=== PATIENT | male | born 1970 | race Caucasian/White ===

== ENCOUNTER 2019-04-15 19:29 | Emergency (ER) | payer BC ==
--- NOTE | 2019-04-15 20:06 | EDM.PDOC ---
ED HPI GENERAL MEDICAL PROBLEM - General Chief Complaint: General Stated Complaint: POSSIBLE BLOOD CLOT Time Seen by Provider: 04/15/19 19:55 Source of Information: Reports: Patient, Family, RN History Limitations: Reports: No Limitations - History of Present Illness INITIAL COMMENTS - FREE TEXT/NARRATIVE: 48 yr male presents with tenderness, swelling to left lower leg. This has been going on for a few days. He has been mowing the lawn lately and there are two, scabbed areas to the ricardo. Some tenderness to the calf with this. Left Lower Leg Pain Score (Numeric/FACES): 4 - Related Data Allergies Allergy/AdvReac Type Severity Reaction Status Date / Time Penicillins Allergy Hives Verified 04/15/19 19:48 Home Meds: Home Meds amLODIPine Besylate/Benazepril [Amlodipine-Benazepril 5-10 MG] 1 each PO DAILY 04/15/19 [History] atorvaSTATin [Lipitor] 10 mg PO BEDTIME 04/15/19 [History] Social & Family History - Tobacco Use Smoking Status *Q: Unknown Ever Smoked ED ROS GENERAL - Review of Systems Review Of Systems: See Below Constitutional: Reports: No Symptoms HEENT: Reports: No Symptoms Respiratory: Reports: No Symptoms Cardiovascular: Reports: Edema GI/Abdominal: Reports: No Symptoms Musculoskeletal: Reports: Other (pain to ricardo with ambulation, increase in pain with extension of left ankle/foot) Skin: Reports: Erythema ED EXAM, GENERAL - Physical Exam Exam: See Below Exam Limited By: No Limitations General Appearance: Alert, No Apparent Distress Ears: Hearing Grossly Normal Nose: Normal Inspection, Normal Mucosa Throat/Mouth: Normal Voice, No Airway Compromise, Other (Mild erythema to posterior pharynx) Head: Atraumatic, Normocephalic Neck: Supple, Non-Tender, Full Range of Motion Respiratory/Chest: No Respiratory Distress, Lungs Clear, Normal Breath Sounds Cardiovascular: Regular Rate, Rhythm, Other (swelling noted to left lower leg. Right ankle 9 3/4 and left ankle is 11/38. Right calf is 9 3/4 and left calf is 11 3/8.) Back Exam: Normal Inspection, Full Range of Motion Extremities: Normal Range of Motion, Redness (left ricardo with superficial swelling and redness noted, no pitting edema.) Neurological: Alert, Oriented, Normal Cognition Course - Vital Signs Last Recorded V/S: Last Vital Signs Temp 98.3 F 04/15/19 19:38 Pulse 89 04/15/19 19:38 Resp 16 04/15/19 19:38 BP 145/87 H 04/15/19 19:38 Pulse Ox 99 04/15/19 19:38 - Orders/Labs/Meds Labs: Laboratory Tests 04/15/19 04/15/19 Range/Units 20:00 20:00 WBC 12.5 H (4.0-11.0) K/uL RBC 4.93 (4.50-6.50) M/uL Hgb 15.4 (13.0-18.0) g/dL Hct 45.7 (40.0-54.0) % MCV 93 (76-96) fL MCH 31.2 (27.0-32.0) pg MCHC 33.7 (31.0-35.0) g/dL RDW 13.1 (11.0-16.0) % Plt Count 262 (150-400) K/uL MPV 9.3 (6.0-10.0) fL Neut % (Auto) 60.5 (45.0-70.0) % Lymph % (Auto) 31.3 (20.0-40.0) % [place] % (Auto) 5.9 (3.0-10.0) % Eos % (Auto) 2.1 (1.0-5.0) % Baso % (Auto) 0.2 (0.0-0.5) % Neut # (Auto) 7.56 H (2.00-7.50) K/uL Lymph # (Auto) 3.90 (1.50-4.00) K/uL [place] # (Auto) 0.73 (0.20-0.80) K/uL Eos # (Auto) 0.26 (0.04-0.40) K/uL Baso # (Auto) 0.02 (0.02-0.10) K/uL D-Dimer, Quantitative 480 H (0-400) ng/mL - Re-Assessments/Exams Free Text/Narrative Re-Assessment/Exam: 04/15/19 20:48 D-dimer is slightly elevated, probably related to bruising to right foot from injury last week. Consult with Dr Puckett, left leg symptoms of cellulitis and possible strep infection. Slight elevated WBC. Pt states WBC is always slightly elevated. Reviewed labs with pt and , instructed on medications and activity. F/U next week. U/S tomorrow. Departure - Departure Time of Disposition: 20:47 Disposition: Home, Self-Care 01 Condition: Good Clinical Impression: Cellulitis - Discharge Information *PRESCRIPTION DRUG MONITORING PROGRAM REVIEWED*: Not Applicable *COPY OF PRESCRIPTION DRUG MONITORING REPORT IN PATIENT AISSATOU: Not Applicable Instructions: Sulfamethoxazole; Trimethoprim, SMX-TMP tablets Referrals: PCP,None [Primary Care Provider] - Forms: ED Department Discharge Additional Instructions: Begin taking provided Bactrim tonight as directed: 1 tablet by mouth twice daily until all pills are gone (20 doses total). Take antibiotic with full glass of water, and not on empty stomach. [facility] will contact you tomorrow with time to arrive for ultrasound scheduled on April 16. Limit activity to as tolerated. Elevate affected extremity to decrease swelling. May also apply cool compress intermittently (place on affected leg for 10-15 minutes every 1-2 hours while awake), to help decrease swelling. May take Ibuprofen OR Aleve, according to package instructions as needed for pain. Follow up in clinic next week. Call with any questions. - Assessment/Plan Plan: Cellulitis to left lower leg: Recommend Bactrim DS 1 tab bid X 10 days. Recommend taking with full glass of water and after food. May take Aleve 1 tablet bid with food. Elevate leg and limit steps, hills, uneven ground. U/S tomorrow to r/u DVT. RTC next week for follow-up.
[2019-04-15] MEDS ORDERED: Sulfamethoxazole/Trimethoprim 800-160 MG Tab ONE (20:30)
== END 2019-04-15 20:47 | disposition home or self-care (01) ==
LOC: LB.ED 19:29
DX: L03.116 Cellulitis of left lower limb (principal); Z88.0 Allergy status to penicillin; Z79.899 Other long term (current) drug therapy
CPT/HCPCS: 36415; 85025; 85379; 99283; A9270

== ENCOUNTER 2021-08-26 14:01 | Emergency (ER) | payer BC, OTHER ==
--- NOTE | 2021-08-26 14:37 | EDM.PDOC ---
ED HPI GENERAL MEDICAL PROBLEM - General Chief Complaint: Eye Problems Stated Complaint: eye irritation Time Seen by Provider: 08/26/21 14:10 Source of Information: Reports: Patient History Limitations: Reports: No Limitations - History of Present Illness INITIAL COMMENTS - FREE TEXT/NARRATIVE: 51-year-old male presents to the ED complaining of left eye irritation. Patient has a 3-day history of sinus issues including sinus pressure, runny nose, drainage, green mucus. This is associated with a sore throat. Approximately 1 day ago patient woke up with an irritated eye that was crusted shut with yellow crust. Vision is normal. Positive for: Increased pressure on bending over and tying shoes, patient has multiple sick contacts through work. No other complaints. Patient denies chest pain, shortness of breath, headache, nausea vomiting, constipation diarrhea, or trauma. - Related Data Allergies Allergy/AdvReac Type Severity Reaction Status Date / Time Penicillins Allergy Hives Verified 08/26/21 14:09 Home Meds: Home Meds amLODIPine Besylate/Benazepril [Amlodipine-Benazepril 5-10 MG] 1 each PO DAILY 04/15/19 [History] atorvaSTATin [Lipitor] 10 mg PO BEDTIME 04/15/19 [History] Aspirin 81 mg PO DAILY 08/26/21 [History] Past Medical History Cardiovascular History: Reports: High Cholesterol, Hypertension - Past Surgical History Musculoskeletal Surgical History: Reports: Arthroscopic Knee Social & Family History - Family History Family Medical History: No Pertinent Family History - Tobacco Use Tobacco Use Status *Q: Never Tobacco User - Caffeine Use Caffeine Use: Reports: Coffee ED ROS GENERAL - Review of Systems Review Of Systems: See Below Constitutional: Reports: Fever (99 per patient). Denies: Night Sweats, Diaphoresis, Decreased Appetite HEENT: Reports: Eye Discharge (Crusted yellow this morning.), Eye Pain (Irritation), Sinus Problem Respiratory: Reports: No Symptoms Cardiovascular: Reports: Blood Pressure Problem (Hypertensionusually worse in office) Endocrine: Reports: No Symptoms GI/Abdominal: Reports: No Symptoms : Reports: No Symptoms Musculoskeletal: Reports: No Symptoms Skin: Reports: No Symptoms Neurological: Reports: No Symptoms Psychiatric: Reports: No Symptoms Hematologic/Lymphatic: Reports: No Symptoms ED EXAM GENERAL W FULL EYE - Physical Exam Exam: See Below Text/Narrative:: ABC intact. No apparent distress. No obvious trauma. Speaking in full sentences. Alert and oriented x3, GCS 456. Exam Limited By: No Limitations General Appearance: Alert, WD/WN, No Apparent Distress Eye Exam: Left Eye: Other (Scleral injection, increased tear [place]), Bilateral Eye: EOMI, Foreign Body (Negative for), PERRL, Vision Changes (Negative for) Eyelids: Bilateral: Normal Appearance Conjunctiva & Sclera: Left: Injected Extraocular Movements: Bilateral: Intact Pupils: Normal Accommodation Pupillary Size: Bilateral: 3 mm Pupillary Reaction: Bilateral: Brisk Ears: Normal External Exam, Normal Canal, Hearing Grossly Normal, Other (Serous effusion bilateral without bulging, or erythema) Nose: Normal Inspection, Normal Mucosa, No Blood, Nasal Drainage (Clear) Throat/Mouth: Normal Lips, Normal Teeth, Normal Gums, Normal Voice, No Airway Compromise, Inflammation (Mild hypopharynx, mild tonsillar mild uvular most likely secondary to postnasal drip) Head: Atraumatic, Normocephalic Neck: Normal Inspection, Supple, Non-Tender, Full Range of Motion. No: Lymphadenopathy (R), Lymphadenopathy (L) Respiratory/Chest: No Respiratory Distress, Lungs Clear, Normal Breath Sounds, No Accessory Muscle Use, Chest Non-Tender Cardiovascular: Normal Peripheral Pulses, Regular Rate, Rhythm, No Edema, No Gallop, No JVD, No Murmur, No Rub GI/Abdominal: Soft, Non-Tender Neurological: Alert, Oriented Psychiatric: Normal Affect, Normal Mood Skin Exam: Warm, Dry, Intact, Normal Color, No Rash Lymphatic: No Adenopathy Course - Vital Signs Last Recorded V/S: Last Vital Signs Temp Pulse 106 H 08/26/21 14:09 Resp 16 08/26/21 14:09 BP Pulse Ox 98 08/26/21 14:09 Departure - Departure Time of Disposition: 15:00 Disposition: Home, Self-Care 01 Condition: Good Clinical Impression: Acute viral sinusitis Conjunctivitis Qualifiers: Conjunctivitis type: acute Acute conjunctivitis type: viral Laterality: left Qualified Code(s): B30.9 - Viral conjunctivitis, unspecified Chronic otitis media with serous effusion Qualifiers: Laterality: bilateral Qualified Code(s): H65.23 - Chronic serous otitis media, bilateral - Discharge Information *PRESCRIPTION DRUG MONITORING PROGRAM REVIEWED*: No *COPY OF PRESCRIPTION DRUG MONITORING REPORT IN PATIENT AISSATOU: No Instructions: Sinusitis, Adult Referrals: PCP,None [Primary Care Provider] - Sepsis Event Note (ED) - Evaluation Sepsis Screening Result: No Definite Risk - Focused Exam Vital Signs: Vital Signs Pulse Resp Pulse Ox 08/26/21 14:09 106 H 16 98 - Assessment/Plan Assessment:: 51-year-old male presents to the ED for evaluation of congestion sinus pressure, left eye irritation. Signs and symptoms are consistent with sinusitis. Discussed viral versus bacterial sinusitis with the patient. Is doubt fungal sinusitis, meningitis, encephalitis, cavernous sinus thrombosis, ocular pathology, intracerebral bleed, serious bacterial infection otherwise. Supportive outpatient management is indicated, outpatient medications ordered as noted below. Reasons to return to the ED were reviewed including worsening symptoms or any new concerns. She moved seems to be she is not happy today. 1. Sinusitis 2. Serious effusion bilateral TMs 3. Viral conjunctivitis left eye Plan: Airway breathing circulation, history, exam, rapid POC strep test (-), supportive care/treatment explained to patient to include: Nasal saline, Coricidin decongestant, getting lots of sleep, staying hydrated, Systane eyedrops for eye irritation, and to expect eye redness to spread to the other eye shortly. Patient and/or automobile sales representative understood and agreed to treatment plan. -All questions were answered to the patient's satisfaction. -Patient is discharged in stable condition. Patient to return to the ED if symptoms increase/return. Follow-up with primary care provider within 2 weeks
== END 2021-08-26 14:53 | disposition home or self-care (01) ==
LOC: LB.ED 14:01
DX: J01.90 Acute sinusitis, unspecified (principal); B30.9 Viral conjunctivitis, unspecified; H65.23 Chronic serous otitis media, bilateral; B97.89 Other viral agents as the cause of diseases classified elsewhere; E78.00 Pure hypercholesterolemia, unspecified; I10 Essential (primary) hypertension; Z88.0 Allergy status to penicillin; Z79.899 Other long term (current) drug therapy; Z79.82 Long term (current) use of aspirin
CPT/HCPCS: 99282